=== PATIENT | female | born 1965 | race African-American/Black ===

== ENCOUNTER 2016-05-18 20:28 | Emergency (ER) | payer OTHER ==
[2016-05-18 20:40] VITALS: TEMP 98.6; BMI 34.9
[2016-05-18] MEDS ORDERED: ALBUTEROL SO4 2.5/IPRATROPIUM 0.5 INH SOL 3 ML VIAL.NEB. NEB ONE ×2 (20:42→22:18)
[2016-05-18] MEDS ORDERED: methylPREDNISolone NA SUCC 125 MG/2 ML VIAL ONE (20:48)
[2016-05-18] MEDS ORDERED: ACETAMINOPHEN 325 MG TABLET (FP) PO ONE (23:09)
--- NOTE | 2016-05-18 23:09 | PDOC ---
History of Present Illness - History of Present Illness Initial Comments: 05/18/16 23:12 Patient is a 50 year old female with significant medical hx of asthma who is presenting to the ED with URI symptoms for three days. Patient complains of nasal congestion, rhinorrhea, cough, fever and chills. Today the patient was out and she began coughing and having shortness of breath. She used her inhaler without having any relief and began feeling anxious. The patient began hyperventilating, with tingling in her hands, and she came to the ED. <Amaris Landis - Last Filed: 05/18/16 23:17> <Alondra Noble - Last Filed: 05/19/16 02:46> - General Chief Complaint: Asthma Stated Complaint: ASTHMA,DIFF BREATHING Time Seen by Provider: 05/18/16 20:41 Past History <Amaris Landis - Last Filed: 05/18/16 23:17> - Past Medical History Asthma: Yes - Surgical History Cholecystectomy: Yes - Immunization History Immunization Up to Date: Yes - Psycho/Social/Smoking Cessation Hx Anxiety: No Suicidal Ideation: No Smoking Status: No Smoking History: Never smoked Number of Cigarettes Smoked Daily: 0 Information on smoking cessation initiated: No Hx Alcohol Use: No Drug/Substance Use Hx: No <Alondra Noble - Last Filed: 05/19/16 02:46> - Past Medical History Allergies/Adverse Reactions: Allergies Allergy/AdvReac Type Severity Reaction Status Date / Time No Known Allergies Allergy Verified 05/18/16 20:37 Home Medications: Ambulatory Orders Albuterol Sulfate Inhaler - [Ventolin HFA Inhaler -] 1 - 2 inh IH QID PRN #0 inh 10/25/11 Cetirizine HCl [Zyrtec] 10 mg PO DAILY #0 tab.rapdis 10/25/11 Review of Systems - Review of Systems Comments:: 05/18/16 23:17 CONSTITUTIONAL: Present: fever, chills, hyperventilating Absent: diaphoresis, generalized weakness, malaise, loss of appetite HEENT: Present: rhinorrhea, nasal congestion Absent: throat pain, throat swelling, difficulty swallowing, mouth swelling, ear pain, eye pain, visual changes CARDIOVASCULAR: Absent: chest pain, syncope, palpitations, irregular heart rate, lightheadedness , peripheral edema RESPIRATORY: Present: cough, shortness of breath Absent: dyspnea with exertion, orthopnea, wheezing, stridor, hemoptysis GASTROINTESTINAL: Absent: abdominal pain, abdominal distension, nausea, vomiting, diarrhea, constipation, melena, hematochezia GENITOURINARY: Absent: dysuria, frequency, urgency, hesitancy, hematuria, flank pain, genital pain MUSCULOSKELETAL: Absent: myalgia, arthralgia, joint swelling SKIN: Absent: rash, itching, pallor HEMATOLOGIC/IMMUNOLOGIC: Absent: easy bleeding, easy bruising, lymphadenopathy, frequent infections ENDOCRINE: Absent: unexplained weight gain, unexplained weight loss, heat intolerance, cold intolerance NEUROLOGIC: Present: tingling in hands Absent: headache, focal weakness, dizziness, unsteady gait, seizure, mental status changes, bladder or bowel incontinence. PSYCHIATRIC: Absent: anxiety, depression, suicidal or homicidal ideation, hallucinations <Amaris Landis - Last Filed: 05/18/16 23:17> *Physical Exam - Vital Signs Last Vital Signs Temp Pulse Resp BP Pulse Ox 98.6 F 121 H 16 130/81 94 L 05/18/16 20:37 05/18/16 20:37 05/18/16 20:37 05/18/16 20:37 05/18/16 20:37 - Physical Exam Comments: 05/18/16 23:18 GENERAL: Well developed, well nourished. Awake and alert. Hyperventilating. HEENT: Normocephalic, atraumatic. PERRLA, EOMI. No conjunctival pallor. Sclera are non- icteric. Moist mucous membranes. Oropharynx is clear. NECK: Supple. Full ROM. No JVD. Carotid pulses 2+ and symmetric, without bruits. No thyromegaly. No lymphadenopathy. CARDIOVASCULAR: Regular rate and rhythm. No murmurs, rubs, or gallops. Distal pulses are 2+ and symmetric. PULMONARY: No evidence of respiratory distress. Lungs clear to auscultation bilaterally. No wheezing, rales or rhonchi. ABDOMINAL: Soft. Non-tender. Non-distended. No rebound or guarding. No organomegaly. Normoactive bowel sounds. MUSCULOSKELETAL: Normal range of motion at all joints. No bony deformities or tenderness. No CVA tenderness. EXTREMITIES: No cyanosis. No clubbing. No edema. No calf tenderness. SKIN: Warm and dry. Normal capillary refill. No rashes. No jaundice. NEUROLOGICAL: Alert, awake, appropriate. Cranial nerves 2-12 intact. Normal speech. Gait is normal without ataxia. PSYCHIATRIC: Cooperative. Good eye contact. Appropriate mood and affect. <Amaris Landis - Last Filed: 05/18/16 23:17> - Vital Signs Last Vital Signs Temp Pulse Resp BP Pulse Ox 98.6 F 121 H 16 130/81 94 L 05/18/16 20:37 05/18/16 20:37 05/18/16 20:37 05/18/16 20:37 05/18/16 20:37 <Alondra Noble - Last Filed: 05/19/16 02:46> ED Treatment Course - Medications Given in the ED: ED Medications Discontinued Medications Generic Name Dose Route Start Last Admin Trade Name Freq PRN Reason Stop Dose Admin Albuterol/Ipratropium 1 amp 05/18/16 22:18 05/18/16 22:18 Duoneb - NEB 05/18/16 22:19 1 amp ONCE ONE Administration <Amaris Landis - Last Filed: 05/18/16 23:17> - LABORATORY CBC & Chemistry Diagram: 05/19/16 00:43 05/19/16 00:43 - Medications Given in the ED: ED Medications Discontinued Medications Generic Name Dose Route Start Last Admin Trade Name Freq PRN Reason Stop Dose Admin Albuterol/Ipratropium 1 amp 05/18/16 22:18 05/18/16 22:18 Duoneb - NEB 05/18/16 22:19 1 amp ONCE ONE Administration <Alondra Noble - Last Filed: 05/19/16 02:46> Medical Decision Making - Medical Decision Making 05/18/16 23:43 This 50-year-old female came in for anxiety, hyperventilation. She has a past medical history of asthma and had been having URI symptoms since the weekend. While she was shopping today she became short of breath but her inhalers did not help her. She came in hyperventilating with numbness around her lips and tingling in her fingertips. She has several breathing treatments, she had no wheezing and she was discharged. However Her vital signs were repeated and she was hypoxic with a very good waveform. Her pulse ox only got to 91%. 05/19/16 02:45 -Is very important to sit the patient up because that her pulse ox would reach 95%. I feel because she is overweight that her body habitus was responsible for the low oxygenation when she laid down supine. She said she normally always sleeps on pillows He did rule out a PE with a CT and review of the chest. There was no acute pathology. There is no evidence of large central embolism. There was no aortic dissection or aneurysm. The heart size is normal. No pleural effusions or pericardial effusions and the lungs were clear. Impression asthma <Alondra Noble - Last Filed: 05/19/16 02:46> *DC/Admit/Observation/Transfer - Attestations Scribe Attestion: 05/18/16 23:19 Documentation prepared by Amaris Landis, acting as medical assistant for Alondra Noble MD. <Amaris Landis - Last Filed: 05/18/16 23:17> <Alondra Noble - Last Filed: 05/19/16 02:46> Diagnosis at time of Disposition: Anxiety Asthma Qualifiers: Asthma severity: mild intermittent Asthma complication type: uncomplicated Qualified Code(s): J45.20 - Mild intermittent asthma, uncomplicated URI (upper respiratory infection) Qualifiers: URI type: unspecified viral URI Qualified Code(s): J06.9 - Acute upper respiratory infection, unspecified - Discharge Dispostion Disposition: HOME Condition at time of disposition: Stable - Referrals Referrals: Yadi Cerrato MD [Primary Care Provider] - - Patient Instructions Printed Discharge Instructions: DI for Asthma -- Adult Additional Instructions: please use your asthma medications as needed followup with your regular physician
[2016-05-18] MEDS ORDERED: predniSONE 20 MG TABLET (UD) PO ONE (23:19)
[2016-05-18] MEDS ORDERED: predniSONE 20 MG TABLET (UD) ONE (23:19)
[2016-05-18] MEDS ORDERED: ACETAMINOPHEN 325 MG TABLET (FP) ONE (23:19)
[2016-05-18 23:36] VITALS: BP 115/68; PULSE 84
[2016-05-19 00:59] LABS: MCH 30.2 pg (25.7-33.7); MCHC 33.3 g/dl (32.0-36.0); MEAN CELL VOLUME 90.7 fl (80-96); MEAN PLT VOLUME 9.6 fl (7.5-11.1); PLATELET COUNT 229 K/MM3 (134-434); RDW 13.5 % (11.6-15.6); WHITE BLOOD COUNT 10.4 K/mm3 (4.0-10.0)
[2016-05-19 01:20] LABS: ALBUMIN 3.9 g/dl (3.4-5.0); ALK PHOS 78 U/L (45-117); ANION GAP 13 (8-16); BILIRUBIN,TOTAL 0.4 mg/dL (0.2-1.0); CO2 22 mmol/L (21-32); CREATININE 0.8 mg/dL (0.55-1.02); GLUCOSE,RANDOM 158 mg/dL (74-106); SGOT/AST 13 U/L (15-37); SGPT/ALT 21 U/L (12-78); TOT PROT 7.6 g/dl (6.4-8.2)
== END 2016-05-19 03:05 | disposition home or self-care (01) ==
LOC: JER 20:28
PROC: 3E0F7GC Introduction of Other Therapeutic Substance into Respiratory Tract, Via Natural or Artificial Opening (ICD-10-PCS; principal; 2016-05-18)
DX: J45.20 Mild intermittent asthma, uncomplicated (principal); J06.9 Acute upper respiratory infection, unspecified; F41.9 Anxiety disorder, unspecified; R06.4 Hyperventilation
CPT/HCPCS: 36415; 71275-TC; 80053; 84703; 85027; 85730; 94640; 99283-25

== ENCOUNTER → 2016-09-15 | Day surgery (SDC) | payer OTHER ==
--- NOTE | 2016-09-16 13:53 | PATH ---
Cytology Non-Gynecological Report Patient Name: HERBERT SANCHEZ [facility]. Rec. #: [id number] /Age/Gender: 1965 (Age: 51) / F Account: [id number] Location: RADIOLOGY Taken: 09/15/2016 Received: 09/15/2016 Reported: 09/16/2016 Physicians: Smooth Sofia M.D. Specimen(s) Received RIGHT THYROID FNA Clinical History Right thyroid nodule, 2.2 x 1.8 x 1.5 cm Final Diagnosis THYROID GLAND, RIGHT LOBE, US GUIDED FINE NEEDLE ASPIRATION BIOPSY: SATISFACTORY FOR EVALUATION. NO MALIGNANT CELLS IDENTIFIED. CONSISTENT WITH NODULAR GOITER WITH CYSTIC CHANGE (BENIGN FOLLICULAR NODULE, BETHESDA CATEGORY II, BENIGN), SEE COMMENT. Comment: The smears show clusters of bland appearing follicular epithelial cells arranged in macro- and microfollicles and flat sheets. Some cells show Hurthle cell (oncocytic) change. Macrophages are present indicative of cystic change. Colloid is present. Electronically Signed London Zuluaga M.D. Gross Description Received are four air dried smears, four smears in 95% alcohol, and 20 cc of bloody fluid in formalin. Four diff-quik stained slides, four Pap stained slides and one cell block are made.
== END | disposition home or self-care (01) ==
LOC: JRADIR 10:32
PROVIDERS: ATTEND Internal Medicine Endocrinology, Diabetes & Metabolism
PROC: 0GBH3ZX Excision of Right Thyroid Gland Lobe, Percutaneous Approach, Diagnostic (ICD-10-PCS; principal; 2016-09-15)
PROC: BG44ZZZ Ultrasonography of Thyroid Gland (ICD-10-PCS; 2016-09-15)
DX: E04.1 Nontoxic single thyroid nodule (principal)
CPT/HCPCS: 10022; 76942; 88173; 88305-TC

== ENCOUNTER 2017-05-21 08:23 | Emergency (ER) | payer OTHER ==
[2017-05-21 08:44] VITALS: TEMP 98.2; BMI 34.9
[2017-05-21] MEDS ORDERED: ACETAMINOPHEN 1000 MG/100 ML VIAL (NON FORMULARY) IVPB ONE (09:40)
[2017-05-21] MEDS ORDERED: ACETAMINOPHEN INJECTION 100 ML IVPB ONE (10:01)
[2017-05-21 10:21] LABS: BASO % 0.7 % (0-2.0); EOS % 0.5 % (0-4.5); HEMOGLOBIN 11.9 GM/dL (10.7-15.3); LYMPH % 30.1 % (8-40); MCH 28.9 pg (25.7-33.7); MEAN CELL VOLUME 90.3 fl (80-96); MEAN PLT VOLUME 8.9 fl (7.5-11.1); MONO % 5.3 % (3.8-10.2); NEUT % 63.4 % (42.8-82.8); PLATELET COUNT 222 K/MM3 (134-434); RDW 13.7 % (11.6-15.6); WHITE BLOOD COUNT 7.9 K/mm3 (4.0-10.0)
[2017-05-21 10:48] LABS: INR 0.99 (0.82-1.09); PROTHROMBIN TIME (PATIENT) 11.2 SEC (9.98-11.88)
[2017-05-21 10:51] LABS: ACTIVATED PTT 31.1 SECONDS (26.9-34.4)
[2017-05-21] MEDS ORDERED: KETOROLAC TROMETHAMINE 15 MG/ML VIAL IVPUSH ONE (11:12)
[2017-05-21] MEDS ORDERED: KETOROLAC TROMETHAMINE 15 MG/ML VIAL ONE (11:19)
[2017-05-21 11:27] LABS: ALBUMIN 3.9 g/dl (3.4-5.0); ALK PHOS 111 U/L (45-117); ANION GAP 6 (8-16); BILIRUBIN,TOTAL 0.4 mg/dL (0.2-1.0); BLOOD UREA NITROGEN 15 mg/dL (7-18); CALCIUM 8.3 mg/dL (8.5-10.1); CHLORIDE 109 mmol/L (98-107); CO2 26 mmol/L (21-32); CREATININE 0.6 mg/dL (0.55-1.02); GLUCOSE,RANDOM 80 mg/dL (74-106); SGOT/AST 13 U/L (15-37); SGPT/ALT 26 U/L (12-78); SODIUM 141 mmol/L (136-145)
--- NOTE | 2017-05-21 12:01 | PDOC ---
History of Present Illness <Alan May - Last Filed: 05/21/17 13:09> <Sandip Pope - Last Filed: 05/22/17 18:55> - General Chief Complaint: Chest Pain Stated Complaint: CHEST PAIN Time Seen by Provider: 05/21/17 08:53 - History of Present Illness Initial Comments: 05/21/17 11:53 "The patient is a 50 year old female with a significant PMH of asthma and left bundle branch block who presents to the emergency department with left sided chest pain after twisting at work approximately 2 days ago. She describes her chest pain a pressure like sensation localized on the left side with no radiation, pleuritic in nature which is aggravated by movement, 8/10 in severity and with associated shortness of breath. The patient reports being at work on Wednesday and twisting her body, after which she experienced her chest pain and some muscle soreness. She reports her muscle soreness was somewhat relieved by heating pads but presents to the ED after her chest pain has not resolved. The patient denies any history of DVT/PE/immobilization/estrogen/ OCPs. Family history is pertinent for AR (brother at age 49). Of note, the patient was recently seen in the ED about 3 days ago for an upper respiratory infection with cough. She has since been prescribed an Albuterol nebulizer by her PCP. The patient denies headache and dizziness. Denies fever, chills, nausea, vomit, diarrhea and constipation. Denies dysuria, frequency, urgency and hematuria. Allergies: NKA Past surgical history: Cholecystectomy. Unspecified bladder and uterine surgeries. Social history: No reported cigarette, alcohol, or drug use PCP: Dr. Cerrato " (Sandip Pope) Past History <Alan May - Last Filed: 05/21/17 13:09> - Past Medical History Anemia: No Asthma: Yes Cancer: No Cardiac Disorders: No (lt bundle branch block) CVA: No COPD: No CHF: No Dementia: No Diabetes: No GI Disorders: No Disorders: Yes (PROLAPSED BLADDER) HTN: No Hypercholesterolemia: No Liver Disease: No Seizures: No Thyroid Disease: No - Surgical History Abdominal Surgery: No Appendectomy: No Cardiac Surgery: No Cholecystectomy: Yes Lung Surgery: No Neurologic Surgery: No Orthopedic Surgery: No - Immunization History Immunization Up to Date: Yes - Suicide/Smoking/Psychosocial Hx Smoking Status: No Smoking History: Never smoked Have you smoked in the past 12 months: No Number of Cigarettes Smoked Daily: 0 Information on smoking cessation initiated: No Hx Alcohol Use: No Drug/Substance Use Hx: No Substance Use Type: Alcohol <Sandip Pope - Last Filed: 05/22/17 18:55> - Past Medical History Allergies/Adverse Reactions: Allergies Allergy/AdvReac Type Severity Reaction Status Date / Time No Known Allergies Allergy Verified 05/21/17 08:40 Home Medications: Ambulatory Orders Cetirizine HCl [Zyrtec] 10 mg PO PRN PRN 03/25/17 Cholecalciferol (Vitamin D3) [Vitamin D3 -] 1,000 unit PO DAILY 03/26/17 Quinapril HCl [Accupril -] 10 mg PO DAILY 03/26/17 Naproxen 500 mg PO BID PRN #14 tablet 05/21/17 Cardiac Specific PMH - Complaint Specific PMHX Pacemaker: No <Sandip Pope - Last Filed: 05/22/17 18:55> Review of Systems <Alan May - Last Filed: 05/21/17 13:09> <Sandip Pope - Last Filed: 05/22/17 18:55> - Review of Systems Comments:: 05/21/17 11:55 "GENERAL/CONSTITUTIONAL: No fever or chills. No weakness. HEAD, EYES, EARS, NOSE AND THROAT: No change in vision. No ear pain or discharge. No sore throat. CARDIOVASCULAR: (+) Left sided chest pain. (+) Shortness of breath. .RESPIRATORY: No cough, wheezing, or hemoptysis. GASTROINTESTINAL: No nausea, vomiting, diarrhea or constipation. GENITOURINARY: No dysuria, frequency, or change in urination. MUSCULOSKELETAL: (+) Muscle soreness. No joint pain. SKIN: No rash NEUROLOGIC: No headache, vertigo, loss of consciousness, or change in strength/ sensation. ENDOCRINE: No increased thirst. No abnormal weight change. HEMATOLOGIC/LYMPHATIC: No anemia, easy bleeding, or history of blood clots. ALLERGIC/IMMUNOLOGIC: No hives or skin allergy. " (Sandip Pope) *Physical Exam <Alan May - Last Filed: 05/21/17 13:09> <Sandip Pope - Last Filed: 05/22/17 18:55> - Vital Signs Last Vital Signs Temp Pulse Resp BP Pulse Ox 98.2 F 78 20 131/70 94 L 05/21/17 08:40 05/21/17 12:51 05/21/17 08:40 05/21/17 12:51 05/21/17 08:40 - Physical Exam Comments: 05/21/17 11:55 "GENERAL: Awake, alert, and fully oriented, in no acute distress HEAD: No signs of trauma EYES: PERRLA, EOMI, sclera anicteric, conjunctiva clear ENT: Auricles normal inspection, hearing grossly normal, nares patent, oropharynx clear without exudates. Moist mucosa NECK: Nontender, no stepoffs, Normal ROM, supple, no lymphadenopathy, JVD, or masses LUNGS: Breath sounds equal, clear to auscultation bilaterally. No wheezes, and no crackles HEART: Regular rate and rhythm, normal S1 and S2, no murmurs, rubs or gallops ABDOMEN: Soft, nontender, normoactive bowel sounds. No guarding, no rebound. No masses EXTREMITIES: Normal range of motion, no edema. No clubbing or cyanosis. No cords, erythema, or tenderness NEUROLOGICAL: Cranial nerves II through XII intact. 5/5 strength and sensation in all extremities, Normal speech, normal gait SKIN: Warm, Dry, normal turgor, no rashes or lesions noted. " (Sandip Pope) Heart Score/ECG Review <Alan May - Last Filed: 05/21/17 13:09> - History History: Slightly suspicious - Electrocardiogram EKG: Non specific repolarization disturbance - Age Age: 45-65 - Risk Factors Risk Factors Heart Score: Yes Positive family hx of cardiac disease Based on the list above the patient has:: 1-2 risk factors - Troponin Troponin: </= normal limit - Score Heart Score - Total: 3 <Sandip Pope - Last Filed: 05/22/17 18:55> - ECG Impressions Comment:: 05/21/17 11:55 NSR, no JAMIL/STDs, LBBB (known), axis wnl, QTc 537 (Sandip Pope) ED Treatment Course - LABORATORY CBC & Chemistry Diagram: 05/21/17 09:42 05/21/17 09:42 <Alan May Last Filed: 05/21/17 13:09> - LABORATORY CBC & Chemistry Diagram: 05/21/17 09:42 05/21/17 09:42 <Sandip Pope - Last Filed: 05/22/17 18:55> - ADDITIONAL ORDERS Additional order review: 05/21/17 09:42 RBC 4.10 D MCV 90.3 MCHC 32.0 RDW 13.7 MPV 8.9 Neutrophils % 63.4 D Lymphocytes % 30.1 D Monocytes % 5.3 Eosinophils % 0.5 D Basophils % 0.7 D - RADIOLOGY Radiology Studies Ordered: Category Date Time Status CHEST PA & LAT [RAD] Stat Radiology 05/21/17 09:39 Completed - Medications Given in the ED: ED Medications Discontinued Medications Generic Name Dose Route Start Last Admin Trade Name Toma PRN Reason Stop Dose Admin Acetaminophen 1,000 mg 05/21/17 09:40 05/21/17 10:00 Ofirmev Injection - IVPB 05/21/17 09:41 1,000 mg ONCE ONE Administration Ketorolac Tromethamine 15 mg 05/21/17 11:12 05/21/17 11:19 Toradol Injection - IVPUSH 05/21/17 11:13 15 mg ONCE ONE Administration Oxycodone/Acetaminophen 1 combo 05/21/17 11:54 05/21/17 12:14 Percocet 5/325 - PO 05/21/17 11:55 1 combo ONCE ONE Administration Medical Decision Making <Alan May - Last Filed: 05/21/17 13:09> <Sandip Pope - Last Filed: 05/22/17 18:55> - Medical Decision Making 05/21/17 11:57 51 F with chest pain x 3 days. Likely msk as pain was triggered by twisting of body. ACS unlikely given no ischemic changes on EKG. Pt slightly hypoxic in ER to 94, likely 2/2 asthma. No PE risk factors. However, she does not PERC out due to O2 sat, so will send dimer. - Labs, trop, Ddimer - CXR - Pain control 05/21/17 12:13 Labs wnl, trop and dimer negative. CXR clear. Pt reassessed - reports significant improvement in pain. Lung exam continues to be clear. O2 sat rechecked, now 100% on RA without intervention. Vitals normal Pt well appearing, clinically stable for DC. I discussed the physical exam findings, ancillary test results and final diagnoses with the patient. I answered all of the patient's questions. The patient was satisfied with the care received and felt comfortable with the discharge plan and treatment plan. The patient agrees to follow up with the primary care physician within 24-72 hours. (Sandip Pope) *DC/Admit/Observation/Transfer <Alan May - Last Filed: 05/21/17 13:09> <Sandip Pope - Last Filed: 05/22/17 18:55> Diagnosis at time of Disposition: Chest pain - Discharge Dispostion Disposition: HOME Condition at time of disposition: Stable - Prescriptions Prescriptions: Naproxen 500 mg PO BID PRN #14 tablet PRN Reason: Pain - Referrals Referrals: Yadi Cerrato MD [Primary Care Provider] - Wisam Gilmore MD [Staff Physician] - - Patient Instructions Printed Discharge Instructions: DI for Atypical Chest Pain Additional Instructions: Follow up with your primary doctor within 1 week for further evaluation of your chest pain. Even though your labwork was normal today, you should still see a automotive technician instructor for a full work up of your heart, especially given your family history of heart disease. You can call the number provided to make an appointment with our automotive technician instructor. If you experience worsening chest pain, shortness of breath, or any other concerning symptoms, return to the ER immediately. - Post Discharge Activity - Attestations Scribe Attestion: 05/21/17 13:09 Documentation prepared by Alan May, acting as program medical director for Sandip Pope MD. (Alan May) Physician Attestion: 05/21/17 12:21 I, Dr. Sandip Pope MD, attest that this document has been prepared under my direction and personally reviewed by me in its entirety. I further attest, that it accurately reflects all work, treatment, procedures and medical decision -making performed by me. (Sandip Pope)
[2017-05-21] MEDS ORDERED: HEMOQUE TEST 1 EACH EACH ONE (12:11)
[2017-05-21 12:53] VITALS: BP 131/70; PULSE 78
--- NOTE | 2017-05-22 13:35 | EKG ---
Test Reason : Blood Pressure : / mmHG Vent. Rate : 094 BPM Atrial Rate : 094 BPM P-R Int : 166 ms QRS Dur : 152 ms QT Int : 430 ms P-R-T Axes : 043 015 063 degrees QTc Int : 537 ms NORMAL SINUS RHYTHM LEFT BUNDLE BRANCH BLOCK ABNORMAL ECG WHEN COMPARED WITH ECG OF 23-FEB-2017 14:06, NO SIGNIFICANT CHANGE WAS FOUND Confirmed by FACUNDO MARIE MD ([id number]) on 05/22/2017 1:35:19 PM Referred By: Confirmed By:FACUNDO MARIE MD
== END 2017-05-21 12:53 | disposition home or self-care (01) ==
LOC: JER 08:23
PROC: 3E033NZ Introduction of Analgesics, Hypnotics, Sedatives into Peripheral Vein, Percutaneous Approach (ICD-10-PCS; principal; 2017-05-21)
PROC: 3E0333Z Introduction of Anti-inflammatory into Peripheral Vein, Percutaneous Approach (ICD-10-PCS; 2017-05-21)
DX: R07.89 Other chest pain (principal)
CPT/HCPCS: 36415; 71046-TC-FY; 80053; 82550; 84484; 85025; 85379; 85610; 85730; 93005; 93010; 99284-25

== ENCOUNTER 2018-11-13 15:36 | Emergency (ER) | payer OTHER ==
[2018-11-13 15:44] VITALS: BMI 35.6
[2018-11-13] MEDS ORDERED: ALBUTEROL SO4 2.5/IPRATROPIUM 0.5 INH SOL 3 ML VIAL.NEB. NEB ONE (16:35)
[2018-11-13 17:02] LABS: BASO % 0.4 % (0-2.0); EOS % 0.7 % (0-4.5); HEMATOCRIT 35.5 % (32.4-45.2); HEMOGLOBIN 11.8 GM/dL (10.7-15.3); LYMPH % 17.9 % (8-40); MCH 31.4 pg (25.7-33.7); MCHC 33.1 g/dl (32.0-36.0); MEAN CELL VOLUME 94.7 fl (80-96); MEAN PLT VOLUME 9.9 fl (7.5-11.1); MONO % 10.5 % (3.8-10.2); NEUT % 70.5 % (42.8-82.8); PLATELET COUNT 177 K/MM3 (134-434); RBC 3.75 M/mm3 (3.60-5.2); RDW 14.3 % (11.6-15.6); WHITE BLOOD COUNT 6.4 K/mm3 (4.0-10.0)
[2018-11-13 17:15] LABS: INR 1.18 (0.83-1.09)
--- NOTE | 2018-11-13 17:31 | PDOC ---
History of Present Illness - General Chief Complaint: Respiratory Stated Complaint: SICK Time Seen by Provider: 11/13/18 15:50 History Source: Patient Exam Limitations: No Limitations Past History - Travel Traveled outside of the country in the last 30 days: Yes If so, where?: [place] Close contact w/someone who was outside of country & ill: No - Past Medical History Allergies/Adverse Reactions: Allergies Allergy/AdvReac Type Severity Reaction Status Date / Time No Known Allergies Allergy Verified 11/13/18 15:44 Home Medications: Ambulatory Orders Cetirizine HCl [Zyrtec] 10 mg PO PRN PRN 03/25/17 Cholecalciferol (Vitamin D3) [Vitamin D3 -] 1,000 unit PO DAILY 03/26/17 Quinapril HCl [Accupril -] 10 mg PO DAILY 03/26/17 Naproxen 500 mg PO BID PRN #14 tablet 05/21/17 Anemia: No Asthma: Yes Cancer: No Cardiac Disorders: No (lt bundle branch block) CVA: No COPD: No CHF: No Dementia: No Diabetes: No GI Disorders: No Disorders: Yes (PROLAPSED BLADDER) HTN: No Hypercholesterolemia: No Liver Disease: No Seizures: No Thyroid Disease: No - Surgical History Abdominal Surgery: No Appendectomy: No Cardiac Surgery: No Cholecystectomy: Yes Lung Surgery: No Neurologic Surgery: No Orthopedic Surgery: No - Immunization History Immunization Up to Date: Yes - Suicide/Smoking/Psychosocial Hx Smoking Status: No Smoking History: Never smoked Have you smoked in the past 12 months: No Number of Cigarettes Smoked Daily: 0 Hx Alcohol Use: No Drug/Substance Use Hx: No Substance Use Type: Alcohol Review of Systems - Review of Systems Comments:: 11/13/18 17:30 CONSTITUTIONAL: Absent: fever, chills, diaphoresis, generalized weakness, malaise, loss of appetite HEENT: Absent: rhinorrhea, nasal congestion, throat pain, throat swelling, difficulty swallowing, mouth swelling, ear pain, eye pain, visual Changes CARDIOVASCULAR: Absent: chest pain, loss of consciousness, palpitations, irregular heart rate, peripheral edema RESPIRATORY: Present: cough, shortness of breath, dsypnea with exertion, orthopnea Absent: wheezing, stridor, hemoptysis GASTROINTESTINAL: Absent: abdominal pain, abdominal distension, nausea, vomiting, diarrhea, constipation, melena, hematochezia GENITOURINARY: Absent: dysuria, frequency, urgency, hesitancy, hematuria, flank pain, genital pain MUSCULOSKELETAL: Absent: myalgia, arthralgia, joint swelling SKIN: Absent: rash, itching, pallor HEMATOLOGIC/IMMUNOLOGIC: Absent: easy bleeding, easy bruising, lymphadenopathy, frequent infections ENDOCRINE: Absent: unexplained weight gain, unexplained weight loss, heat intolerance, cold intolerance NEUROLOGIC: Absent: headache, focal weakness or paresthesias, dizziness, unsteady gait, seizure, mental status changes, bladder or bowel incontinence PSYCHIATRIC: Absent: anxiety, depression, suicidal or homicidal ideation, hallucinations. *Physical Exam - Vital Signs Last Vital Signs Temp Pulse Resp BP Pulse Ox 99.6 F 45 L 18 107/52 L 97 11/13/18 15:40 11/13/18 15:40 11/13/18 15:40 11/13/18 15:40 11/13/18 15:40 - Physical Exam Comments: 11/13/18 17:31 GENERAL: Well developed, well nourished. Awake and alert. Appears weak. No acute distress HEENT: Normocephalic, atraumatic. PERRLA, EOMI. No conjunctival pallor. Sclera are non- icteric. Moist mucous membranes. Oropharynx is clear. NECK: Supple. Full ROM. No JVD. Carotid pulses 2+ and symmetric, without bruits. No thyromegaly. No lymphadenopathy. CARDIOVASCULAR: Regular rate and rhythm. No murmurs, rubs, or gallops. Distal pulses are 2+ and symmetric. PULMONARY: No evidence of respiratory distress. Lungs with diminished sounds to the bases. Scattered RUL wheezing No rales or rhonchi. ABDOMINAL: Soft. Non-tender. Non-distended. No rebound or guarding. No organomegaly. Normoactive bowel sounds. MUSCULOSKELETAL Normal range of motion at all joints. No bony deformities or tenderness. No CVA tenderness. EXTREMITIES: No cyanosis. No clubbing. No edema. No calf tenderness. SKIN: Warm and dry. Normal capillary refill. No rashes. No jaundice. NEUROLOGICAL: Alert, awake, appropriate. Cranial nerves 2-12 intact. No deficits to light touch and temperature in face, upper extremities and lower extremities. No motor deficits in the in face, upper extremities and lower extremities. Normoreflexic in the upper and lower extremities. Normal speech. Toes are down- going bilaterally. Gait is normal without ataxia. PSYCHIATRIC: Cooperative. Good eye contact. Appropriate mood and affect. ED Treatment Course - LABORATORY CBC & Chemistry Diagram: 11/13/18 16:55 11/13/18 16:55 - ADDITIONAL ORDERS Additional order review: Laboratory Results 11/13/18 16:55 PT with INR 14.00 H INR 1.18 H 11/13/18 16:55 RBC 3.75 MCV 94.7 MCHC 33.1 RDW 14.3 MPV 9.9 D Neutrophils % 70.5 Lymphocytes % 17.9 D Monocytes % 10.5 H D Eosinophils % 0.7 Basophils % 0.4 - RADIOLOGY Radiology Studies Ordered: Category Date Time Status CHEST PA & LAT [RAD] Stat Radiology 11/13/18 16:35 Ordered - Medications Given in the ED: ED Medications Discontinued Medications Generic Name Dose Route Start Last Admin Trade Name Freq PRN Reason Stop Dose Admin Albuterol/Ipratropium 1 amp 11/13/18 16:35 11/13/18 16:58 Duoneb - NEB 11/13/18 16:36 1 amp ONCE ONE Administration Medical Decision Making - Medical Decision Making 11/13/18 17:32 the patient is a 53-year-old female with past medical history of hypertension, heart failure, left bundle branch block, asthma, presents to the ER with worsening shortness of breath over the past 3 days. The patient states that her symptoms initially began prior to her trip to [place] around November 02. She states that she had a cough and felt her breathing was tight so her primary care doctor prescribed her Z-Leopoldo. She states she initially felt better after the Z-Leopoldo however when she returned from [place] approximately 5 days ago her symptoms started again. She was placed on Levaquin 3 days ago however she states it has not helped her symptoms. She states that she has decreased exercise tolerance and gets short of breath walking from her bedroom to her bathroom. She also notes that she is sleeping on 3 pillows a night. Admits to wheezing generalized weakness. Denies fevers, chills, sore throat, chest pain, palpitations, edema, nausea vomiting diarrhea. A/P: Dyspnea on exertion Differential diagnosis includes but is not limited to asthma exacerbation, acute on chronic heart failure, pleural effusion, pneumonia, arrhythmia. Less likely viral illness On exam lung sounds are diminished at the bases, possible scattered wheezing heard at the RUL. Heart sounds are regular, S1-S2 present, no murmurs rubs or gallops noted. No peripheral edema noted Basic labs, troponin, BNP, EKG and chest x-ray ordered EKG shows a rate of 77 bpm QTc 454. Right axis deviation noted. No acute ST-T wave changes, however the patient is currently in bigeminy. Patient upgraded from fast track to the main ER given decreased exercise tolerance with EKG changes. Charge nurse Radha made aware. Signout given to Dr. Noble. Patient stable for transfer to room 4 for telemetry *DC/Admit/Observation/Transfer Diagnosis at time of Disposition: Bigeminal rhythm, Dyspnea on exertion - Referrals Referrals: Yadi Cerrato MD [Primary Care Provider] - - Patient Instructions - Post Discharge Activity
[2018-11-13 17:46] LABS: ALBUMIN 3.8 g/dl (3.4-5.0); ALK PHOS 100 U/L (45-117); ANION GAP 6 MMOL/L (8-16); BILIRUBIN,TOTAL 0.4 mg/dL (0.2-1); BLOOD UREA NITROGEN 14.5 mg/dL (7-18); CALCIUM 8.6 mg/dL (8.5-10.1); CHLORIDE 107 mmol/L (98-107); CO2 27 mmol/L (21-32); CREATININE 0.8 mg/dL (0.55-1.3); GLUCOSE,RANDOM 98 mg/dL (74-106); N-TERMINAL BNP 656.6 pg/ml (5-125); POTASSIUM 4.4 mmol/L (3.5-5.1); SGOT/AST 14 U/L (15-37); SGPT/ALT 22 U/L (13-61); SODIUM 140 mmol/L (136-145); TOT PROT 6.9 g/dl (6.4-8.2)
--- NOTE | 2018-11-13 18:24 | PDOC ---
History of Present Illness - General Chief Complaint: Respiratory Stated Complaint: SICK Time Seen by Provider: 11/13/18 15:50 History Source: Patient - History of Present Illness Initial Comments: 11/13/18 18:20 Pura Cisneros is a 53F with PMH asthma, HF, LBBB, and HTN presenting with weakness and SOB. A week and a half ago patient was feeling cold-like sx, got a Z-pac and felt better. Went to [place] last week, had a roommate who was sick, returned 5 days ago. Now has persistent productive cough of yellow sputum with dyspnea. Has long hx asthma, on albuterol and singulair, increased daily usage. Saw her PCP again, was given 7 day course of 500mg Levaquin, has taken 5 days worth. Reports weakness and difficulty standing in the shower. Denies fevers, palpitations or chest pain, headache, syncope. Denies abd pain, urinary sx, constipation, diarrhea. Scheduled for hysterectomy in November for post-op uterine/bladder complication, denies vaginal bleeding. Hx LBBB, sees breakfast host Alfredo Gandara ([phone]) for HF, on Entresto and Metop. Past History - Past Medical History Allergies/Adverse Reactions: Allergies Allergy/AdvReac Type Severity Reaction Status Date / Time No Known Allergies Allergy Verified 11/13/18 15:44 Home Medications: Ambulatory Orders Cholecalciferol (Vitamin D3) [Vitamin D3 -] 1,000 unit PO DAILY 03/26/17 Aspirin 81 mg PO DAILY 11/13/18 Cetirizine HCl [Zyrtec -] 10 mg PO DAILY 11/13/18 Metoprolol Succinate 50 mg PO DAILY 11/13/18 Pentosan Polysulfate Sodium [Elmiron] 100 mg PO DAILY 11/13/18 Prednisone [Deltasone] 20 mg PO TID 4 Days #12 tablet 11/13/18 Rosuvastatin Calcium [Crestor] 10 mg PO DAILY 11/13/18 Sacubitril/Valsartan [Entresto 97 mg-103 mg Tablet] 1 each PO DAILY 11/13/18 Anemia: No Asthma: Yes Cancer: No Cardiac Disorders: No (lt bundle branch block) CVA: No COPD: No CHF: No Dementia: No Diabetes: No GI Disorders: No Disorders: Yes (PROLAPSED BLADDER) HTN: No Hypercholesterolemia: No Liver Disease: No Seizures: No Thyroid Disease: No - Surgical History Abdominal Surgery: No Appendectomy: No Cardiac Surgery: No Cholecystectomy: Yes Lung Surgery: No Neurologic Surgery: No Orthopedic Surgery: No - Immunization History Immunization Up to Date: Yes - Suicide/Smoking/Psychosocial Hx Smoking Status: No Smoking History: Never smoked Have you smoked in the past 12 months: No Number of Cigarettes Smoked Daily: 0 Hx Alcohol Use: No Drug/Substance Use Hx: No Substance Use Type: Alcohol Review of Systems - Review of Systems Able to Perform ROS?: Yes Is the patient limited Indian proficient: No Constitutional: No: Chills, Fever, Night Sweats HEENTM: No: Blurred Vision, Hearing Loss, Throat Swelling, Dental Problems Respiratory: Yes: Cough (persistent, all day), Shortness of Breath, Wheezing Cardiac (ROS): Yes: Lightheadedness. No: Chest Pain, Edema, Chest Tightness ABD/GI: No: Blood Streaked Bowels, Constipated, Diarrhea, Nausea, Vomiting : No: Burning, Dysuria, Discharge Musculoskeletal: No: Back Pain Integumentary: No: Symptoms Reported Neurological: No: Symptoms reported All Other Systems: Reviewed and Negative *Physical Exam - Vital Signs Last Vital Signs Temp Pulse Resp BP Pulse Ox 99.6 F 45 L 18 107/52 L 97 11/13/18 15:40 11/13/18 15:40 11/13/18 15:40 11/13/18 15:40 11/13/18 15:40 - Physical Exam General Appearance: Yes: Nourished, Appropriately Dressed, Obese. No: Apparent Distress HEENT: positive: EOMI, Normal Voice, Symmetrical. negative: Scleral Icterus (R) , Scleral Icterus (L), Muffled/Hoarse voice, Pharyngeal Erythema Neck: positive: Trachea midline, Supple. negative: Tender, Decreased range of motion, Lymphadenopathy (R), Lymphadenopathy (L) Respiratory/Chest: positive: Normal Breath Sounds, Other (some decreased breath sounds in bases, no wheezing s/p nebs). negative: Chest Tender, Respiratory Distress, Accessory Muscle Use Cardiovascular: positive: Regular Rhythm, Regular Rate. negative: Murmur Gastrointestinal/Abdominal: positive: Normal Bowel Sounds, Soft. negative: Tender, Organomegaly Musculoskeletal: positive: Normal Inspection Extremity: positive: Normal Capillary Refill, Normal Inspection, Normal Range of Motion. negative: Tender, Pedal Edema, Swelling Integumentary: positive: Normal Color, Dry, Warm, Other (sunburn/peeling to chest and back) Neurologic: positive: Fully Oriented, Alert, Normal Mood/Affect, Normal Response ED Treatment Course - LABORATORY CBC & Chemistry Diagram: 11/13/18 16:55 11/13/18 16:55 - ADDITIONAL ORDERS Additional order review: Laboratory Results 11/13/18 11/13/18 16:55 16:55 PT with INR 14.00 H INR 1.18 H Sodium 140 Potassium 4.4 Chloride 107 Carbon Dioxide 27 Anion Gap 6 L BUN 14.5 Creatinine 0.8 Est GFR (CKD-EPI)AfAm 98.93 Est GFR (CKD-EPI)NonAf 85.36 Random Glucose 98 Calcium 8.6 Total Bilirubin 0.4 AST 14 L ALT 22 Alkaline Phosphatase 100 B-Natriuretic Peptide 656.6 H Total Protein 6.9 Albumin 3.8 11/13/18 16:55 RBC 3.75 MCV 94.7 MCHC 33.1 RDW 14.3 MPV 9.9 D Neutrophils % 70.5 Lymphocytes % 17.9 D Monocytes % 10.5 H D Eosinophils % 0.7 Basophils % 0.4 - Medications Given in the ED: ED Medications Discontinued Medications Generic Name Dose Route Start Last Admin Trade Name Freq PRN Reason Stop Dose Admin Albuterol/Ipratropium 1 amp 11/13/18 16:35 11/13/18 16:58 Duoneb - NEB 11/13/18 16:36 1 amp ONCE ONE Administration Medical Decision Making - Medical Decision Making 11/13/18 19:19 Pura Cisneros is a 53F with PMH asthma, HF, LBBB, and HTN presenting with weakness and SOB. Patient evaluated in Fast Track, got CMP, CBC, ECG, BNP, CXR, PT/INR/PTT, cardiac profile. Some wheezing on exam, given 1amp albuterol nebs with some improvement of wheezing but not cough. 11/13/18 19:39 CMP, CBC, WNL. BNP ~600. CXR on preliminary read remarkable for cardiomegaly, no signs of pleural effusion or consolidations. Given hx CHF, recent travel, recent URI, and asthma hx, concerned initially for CHF exacerbation vs. PE vs. asthma exacerbation vs. failure of outpatient tx PNA. No LE swelling and constant productive cough makes PE less likely. BNP 600 and no physical exam findings of fluid overload concerning for CHF. Likely asthma exacerbation, giving Solu-Medrol with prednisone taper for discharge. 11/13/18 19:40 ECG in bigeminy, previous ECG shows LBBB. Repeat ECG still bigeminy, will call home breakfast host for consult. 11/13/18 21:[address] Gandara, patient's hx maurice is known and unconcerning, instructions to f/u with him in the next month. Good to d/c home. *DC/Admit/Observation/Transfer Diagnosis at time of Disposition: Bigeminal rhythm, Dyspnea on exertion Asthma Qualifiers: Asthma severity: mild Asthma complication type: with acute exacerbation - Discharge Dispostion Disposition: HOME Condition at time of disposition: Improved Decision to Admit order: No - Prescriptions Prescriptions: Prednisone [Deltasone] 20 mg PO TID 4 Days #12 tablet - Referrals Referrals: Yadi Cerrato MD [Primary Care Provider] - - Patient Instructions Printed Discharge Instructions: DI for Asthma -- Adult Additional Instructions: Today you were evaluated for shortness of breath. Examination of your blood does not show any signs of infection or anemia, and you did not show any signs of worsening heart failure or pulmonary embolism after your recent travel. Your chest x-ray does not show any signs of fluid in your lungs or pneumonia. Thus, your shortness of breath is likely due to your asthma. We gave you a steroid called SoluMedrol today, and are sending you home with prednisone to keep your asthma at bay. We also noticed that your EKG shows an unusual rhythm called angelaeminy. After calling Dr. Alfredo Gandara, he confirmed that this was normal for you, and that you should see him in the next month. If you experience worsening shortness of breath, fever, cough blood, chest pain , palpitations, or any new or concerning symptoms, please return to the emergency room immediately. See your primary doctor in the next 72 hours, and follow-up with Dr. Gandara in the next month. - Post Discharge Activity
[2018-11-13] MEDS ORDERED: predniSONE 20 MG TABLET (UD) PO ONE (18:44)
[2018-11-13] MEDS ORDERED: predniSONE 20 MG TABLET (UD) ONE (18:50)
[2018-11-13] MEDS ORDERED: methylPREDNISolone NA SUCC 125 MG/2 ML VIAL IVPB ONE (18:54)
--- NOTE | 2018-11-13 18:58 | PDOC ---
*Physical Exam - Vital Signs Last Vital Signs Temp Pulse Resp BP Pulse Ox 99.6 F 45 L 18 107/52 L 97 11/13/18 15:40 11/13/18 15:40 11/13/18 15:40 11/13/18 15:40 11/13/18 15:40 ED Treatment Course - LABORATORY CBC & Chemistry Diagram: 11/13/18 16:55 11/13/18 16:55 - ADDITIONAL ORDERS Additional order review: Laboratory Results 11/13/18 11/13/18 16:55 16:55 PT with INR 14.00 H INR 1.18 H Sodium 140 Potassium 4.4 Chloride 107 Carbon Dioxide 27 Anion Gap 6 L BUN 14.5 Creatinine 0.8 Est GFR (CKD-EPI)AfAm 98.93 Est GFR (CKD-EPI)NonAf 85.36 Random Glucose 98 Calcium 8.6 Total Bilirubin 0.4 AST 14 L ALT 22 Alkaline Phosphatase 100 Creatine Kinase 151 Troponin I < 0.02 B-Natriuretic Peptide 656.6 H Total Protein 6.9 Albumin 3.8 11/13/18 16:55 RBC 3.75 MCV 94.7 MCHC 33.1 RDW 14.3 MPV 9.9 D Neutrophils % 70.5 Lymphocytes % 17.9 D Monocytes % 10.5 H D Eosinophils % 0.7 Basophils % 0.4 - Medications Given in the ED: ED Medications Discontinued Medications Generic Name Dose Route Start Last Admin Trade Name Raviq PRN Reason Stop Dose Admin Albuterol/Ipratropium 1 amp 11/13/18 16:35 11/13/18 16:58 Duoneb - NEB 11/13/18 16:36 1 amp ONCE ONE Administration Medical Decision Making - Medical Decision Making 11/13/18 18:55 I manually irrigated the vega but did not retrieve many clots. Pt is able to urinate and I spoke with Dr Fraga and he said to d/c the cbi and send the pt home.The pt can follow up in the office *DC/Admit/Observation/Transfer Diagnosis at time of Disposition: Bigeminal rhythm, Dyspnea on exertion - Prescriptions Prescriptions: Prednisone [Deltasone] 20 mg PO TID 4 Days #12 tablet - Referrals Referrals: Yadi Cerrato MD [Primary Care Provider] - - Patient Instructions - Post Discharge Activity
[2018-11-13] MEDS ORDERED: methylPREDNISolone NA SUCC 125 MG/2 ML VIAL ONE (19:13)
[2018-11-13 19:42] VITALS: BP 117/55; PULSE 73; TEMP 98.3
--- NOTE | 2018-11-13 21:09 | PDOC ---
Documentation entered by Albaro Sam SCRIBE, acting as scribe for Alondra Noble MD. Alondra Noble MD: This documentation has been prepared by the Flaco encinas Daniel, SCRIBE, under my direction and personally reviewed by me in its entirety. I confirm that the documentation accurately reflects all work, treatment, procedures, and medical decision making performed by me. Attending Attestation - Resident Resident Name: Mane Linton - ED Attending Attestation I have performed the following: I have examined & evaluated the patient, The case was reviewed & discussed with the resident, I agree w/resident's findings & plan, Exceptions are as noted - HPI HPI: 11/13/18 18:32 The patient is a 53 year old female with a past medical history of HTN, CHF, left bundle branch block, and asthma here today for evaluation of shortness of breath. The patient reports that she has been having one week of shortness of breath that has been making it hard for her to perform her daily activities and notes an associated cough. Patient reports that she traveled to [place] in the past week. She also notes that she has been using her inhaler more recently. Patient denies headache, lightheadedness. Denies chills. Denies chest pain. Denies nausea, vomiting, diarrhea, abdominal pain. Allergies: NKA PCP: Yadi Cerrato - Physicial Exam PE: 11/13/18 19:18 GENERAL: Well-appearing, well-nourished. No apparent distress. HEENT: Normocephalic, atraumatic. PERRL, EOM intact. CARDIOVASCULAR: Normal S1, S2. Regular rate and rhythm. PULMONARY: Clear to auscultation bilaterally after albuterol treatments. ABDOMEN: Soft, non-distended, non-tender. EXTREMITIES: Normal ROM in all four extremities. No gross deformities. SKIN: Warm, dry. No rash NEUROLOGICAL: No focal neurological deficits. - Medical Decision Making 11/13/18 21:06 We spoke with her furnace mechanic and she does have a history of bigeminy. He recommended she see him within the next 4 weeks -cxr napd,CM neg troponin pt will finish her antibiotics and follow up with her physicians imp cough > 3 weeks, asthma exacerbation pt's symptoms improved with resp tx and steroids RX for steroids
--- NOTE | 2018-11-14 10:09 | EKG ---
Test Reason : Blood Pressure : / mmHG Vent. Rate : 071 BPM Atrial Rate : 071 BPM P-R Int : 168 ms QRS Dur : 088 ms QT Int : 420 ms P-R-T Axes : 035 015 037 degrees QTc Int : 456 ms SINUS RHYTHM WITH FREQUENT PREMATURE VENTRICULAR COMPLEXES IN A PATTERN OF BIGEMINY OTHERWISE NORMAL ECG WHEN COMPARED WITH ECG OF 21-MAY-2017 08:32, NO SIGNIFICANT CHANGE WAS FOUND Confirmed by BRITTANY VALADEZ, TIFFANY ([id number]) on 11/14/2018 10:09:05 AM Referred By: Confirmed By:TIFFANY SOTO MD
--- NOTE | 2018-11-16 14:07 | EKG ---
Test Reason : Blood Pressure : / mmHG Vent. Rate : 077 BPM Atrial Rate : 077 BPM P-R Int : 164 ms QRS Dur : 096 ms QT Int : 402 ms P-R-T Axes : 023 013 057 degrees QTc Int : 454 ms SINUS RHYTHM WITH FREQUENT PREMATURE VENTRICULAR COMPLEXES IN A PATTERN OF BIGEMINY OTHERWISE NORMAL ECG WHEN COMPARED WITH ECG OF 21-MAY-2017 08:32, PREMATURE VENTRICULAR COMPLEXES ARE NOW PRESENT LEFT BUNDLE BRANCH BLOCK IS NO LONGER PRESENT Confirmed by ANIBAL VALADEZ, RIC ([id number]) on 11/16/2018 2:06:45 PM Referred By: Confirmed By:RIC BARNETT MD
== END 2018-11-13 21:54 | disposition home or self-care (01) ==
LOC: JER 15:36 → JERFT 15:36 → JER 21:54
PROC: 3E0F7GC Introduction of Other Therapeutic Substance into Respiratory Tract, Via Natural or Artificial Opening (ICD-10-PCS; principal; 2018-11-13)
PROC: 3E0333Z Introduction of Anti-inflammatory into Peripheral Vein, Percutaneous Approach (ICD-10-PCS; 2018-11-13)
DX: J45.21 Mild intermittent asthma with (acute) exacerbation (principal); I49.8 Other specified cardiac arrhythmias; R06.09 Other forms of dyspnea; I11.0 Hypertensive heart disease with heart failure; I50.9 Heart failure, unspecified
CPT/HCPCS: 36415; 71046-TC-FY; 80053; 82550; 82553; 83880; 84484; 85025; 85610; 93005; 93010; 94640; 96374; 99283-25

== ENCOUNTER 2020-05-17 04:15 | Day surgery (SDC) | payer OTHER ==
[2020-05-15 13:54] VITALS: BMI 36.2
[2020-05-17] MEDS ORDERED: LIDOCAINE HCL/PF 1% SDV 5ML VIAL ONE (07:16)
[2020-05-17] MEDS ORDERED: BUPIVACAINE HCL 50 ML ONE (07:16)
[2020-05-17] MEDS ORDERED: BUPIVACAINE HCL/PF 0.25% (2.5MG/ML) 10 ML VIAL ONE (07:16)
[2020-05-17] MEDS ORDERED: DEXAMETHASONE SOD PHOSPHATE/PF 10 MG/ML SDV ONE (07:16)
[2020-05-17] MEDS ORDERED: BUPIVACAINE HCL/PF 0.75% 10 ML VIAL ONE (07:16)
[2020-05-17] MEDS ORDERED: SODIUM CHLORIDE 0.9% P/F 10 ML VIAL IJ ONE (07:28)
[2020-05-17] MEDS ORDERED: LIDOCAINE HCL 1% PRESERVATIVE FREE - 30ML VIAL IJ ONE (08:42)
[2020-05-17] MEDS ORDERED: TRIAMCINOLONE ACET 40MG/1ML VIAL IM ONE (08:42)
[2020-05-17] MEDS ORDERED: IOHEXOL 180 MG/1 ML ML IJ ONE (08:42)
[2020-05-17] MEDS ORDERED: BUPIVACAINE HCL/PF 0.5% (5 MG/ML) 30 ML VIAL IJ ONE (08:42)
[2020-05-17 09:13] VITALS: BP 110/54; PULSE 55; TEMP 98
== END 2020-05-17 09:45 | disposition home or self-care (01) ==
LOC: JASU-SURG 04:15
PROVIDERS: ATTEND Pain Medicine Pain Medicine
PROC: 3E0T33Z Introduction of Anti-inflammatory into Peripheral Nerves and Plexi, Percutaneous Approach (ICD-10-PCS; 2020-05-17)
PROC: 3E0T3BZ Introduction of Anesthetic Agent into Peripheral Nerves and Plexi, Percutaneous Approach (ICD-10-PCS; principal; 2020-05-17 08:30)
DX: M53.3 Sacrococcygeal disorders, not elsewhere classified (principal)
CPT/HCPCS: 76000-TC-FY

== ENCOUNTER 2021-02-07 11:22 | Day surgery (SDC) | payer OTHER ==
[2021-02-06 14:46] VITALS: BMI 35.7
[2021-02-07] MEDS ORDERED: TRIAMCINOLONE ACETONIDE 40 MG/ML 10 ML VIAL IJ ONE (13:39)
[2021-02-07] MEDS ORDERED: BUPIVACAINE HCL/PF 0.5% (5MG/ML) 10 ML VIAL IJ ONE (13:40)
[2021-02-07] MEDS ORDERED: LIDOCAINE 1% P/F 10 MG/ML VIAL INF ONE ×2 (13:40→14:06)
[2021-02-07] MEDS ORDERED: BUPIVACAINE HCL/PF 0.75% 10 ML VIAL NR ONE (13:40)
[2021-02-07] MEDS ORDERED: BUPIVACAINE HCL/PF 0.75% 10 ML VIAL ONE (13:41)
[2021-02-07] MEDS ORDERED: LIDOCAINE HCL/PF 1% SDV 5ML VIAL ONE (13:41)
[2021-02-07] MEDS ORDERED: IOHEXOL 180 MG/1 ML ML IJ ONE (14:06)
[2021-02-07 15:25] VITALS: BP 119/62; PULSE 73; TEMP 97.8
== END 2021-02-07 14:55 | disposition home or self-care (01) ==
LOC: JASU-SURG 11:22
PROVIDERS: ATTEND Pain Medicine Pain Medicine
PROC: 3E0U3BZ Introduction of Anesthetic Agent into Joints, Percutaneous Approach (ICD-10-PCS; 2021-02-07)
PROC: 3E0U33Z Introduction of Anti-inflammatory into Joints, Percutaneous Approach (ICD-10-PCS; principal; 2021-02-07 13:00)
DX: M53.3 Sacrococcygeal disorders, not elsewhere classified (principal)
CPT/HCPCS: 76000-TC-FY

== ENCOUNTER 2021-06-02 22:34 | Emergency (ER) | payer OTHER ==
[2021-06-02 22:42] VITALS: BP 121/74; PULSE 59; TEMP 98.1; BMI 34.8
[2021-06-02] MEDS ORDERED: IBUPROFEN 600 MG TABLET (FP) PO ONE ×2 (23:31→23:47)
== END 2021-06-03 00:28 | disposition home or self-care (01) ==
LOC: JER 22:34
DX: S63.619A Unspecified sprain of unspecified finger, initial encounter (principal); S63.602A Unspecified sprain of left thumb, initial encounter; V78.6XXA Passenger on bus injured in noncollision transport accident in traffic accident, initial encounter
CPT/HCPCS: 73130-TC-LT-FY; 99283-25

== ENCOUNTER 2021-06-27 04:22 | Day surgery (SDC) | payer OTHER ==
[2021-06-26 12:31] VITALS: BMI 36.2
[2021-06-27] MEDS ORDERED: BUPIVACAINE HCL/PF 0.75% 10 ML VIAL ONE (07:10)
[2021-06-27] MEDS ORDERED: LIDOCAINE HCL/PF 1% SDV 5ML VIAL ONE (07:10)
[2021-06-27] MEDS ORDERED: BUPIVACAINE HCL/PF 0.75% 10 ML VIAL NR ONE ×2 (10:32→10:38)
[2021-06-27] MEDS ORDERED: IOHEXOL 180 MG/1 ML ML IJ ONE ×2 (10:32→10:35)
[2021-06-27] MEDS ORDERED: LIDOCAINE HCL 1% PRESERVATIVE FREE - 30ML VIAL IJ ONE (10:32)
[2021-06-27 11:43] VITALS: BP 114/68; PULSE 55; TEMP 98.8
== END 2021-06-27 11:20 | disposition home or self-care (01) ==
LOC: JASU-SURG 04:22
PROVIDERS: ATTEND Pain Medicine Pain Medicine
PROC: BR16YZZ Fluoroscopy of Lumbar Facet Joint(s) using Other Contrast (ICD-10-PCS; 2021-06-27)
PROC: 3E0T3BZ Introduction of Anesthetic Agent into Peripheral Nerves and Plexi, Percutaneous Approach (ICD-10-PCS; principal; 2021-06-27 10:30)
DX: M47.816 Spondylosis without myelopathy or radiculopathy, lumbar region (principal)
CPT/HCPCS: 76000-TC-FY

== ENCOUNTER 2021-07-29 04:41 | Day surgery (SDC) | payer OTHER ==
[2021-07-25 16:05] VITALS: BMI 35.4
[~2021-07-29 04:41] MED LIST: BUPIVACAINE HCL/PF 0.75% 10 ML VIAL NR ONE
[2021-07-29] MEDS ORDERED: BUPIVACAINE HCL/PF 0.75% 10 ML VIAL ONE (07:44)
[2021-07-29] MEDS ORDERED: LIDOCAINE HCL/PF 1% SDV 5ML VIAL ONE (07:44)
[2021-07-29] MEDS ORDERED: LIDOCAINE HCL 1% PRESERVATIVE FREE - 30ML VIAL IJ ONE ×2 (12:24)
[2021-07-29] MEDS ORDERED: IOHEXOL 180 MG/1 ML ML IJ ONE (12:25)
[2021-07-29] MEDS ORDERED: BUPIVACAINE HCL/PF 0.75% 10 ML VIAL NR ONE (12:32)
[2021-07-29 14:00] VITALS: BP 106/55; PULSE 60; TEMP 97.8
== END 2021-07-29 13:45 | disposition home or self-care (01) ==
LOC: JASU-SURG 04:41
PROVIDERS: ATTEND Pain Medicine Pain Medicine
PROC: BR16YZZ Fluoroscopy of Lumbar Facet Joint(s) using Other Contrast (ICD-10-PCS; 2021-07-29)
PROC: 3E0T3BZ Introduction of Anesthetic Agent into Peripheral Nerves and Plexi, Percutaneous Approach (ICD-10-PCS; principal; 2021-07-29 11:30)
DX: M47.816 Spondylosis without myelopathy or radiculopathy, lumbar region (principal)
CPT/HCPCS: 76000-TC-FY

== ENCOUNTER → 2022-12-01 | Day surgery (SDC) | payer OTHER ==
[2022-11-27 14:16] VITALS: BMI 36.0
[~2022-12-01] MED LIST changes: +ACETAMINOPHEN 500 MG TABLET (FP) PO PRN; +LIDOCAINE 1% P/F 10 MG/ML VIAL INF ONE
[2022-12-01 12:51] VITALS: RESP 18
[2022-12-01 14:07] VITALS: TEMP 97.8
[2022-12-01 14:27] VITALS: BP 119/71; PULSE 69
== END | disposition home or self-care (01) ==
LOC: JASU-SURG 05:00
PROVIDERS: ATTEND Pain Medicine Pain Medicine
PROC: 3E0T33Z Introduction of Anti-inflammatory into Peripheral Nerves and Plexi, Percutaneous Approach (ICD-10-PCS; 2022-12-01)
PROC: 3E0T3BZ Introduction of Anesthetic Agent into Peripheral Nerves and Plexi, Percutaneous Approach (ICD-10-PCS; principal; 2022-12-01 14:30)
DX: M47.816 Spondylosis without myelopathy or radiculopathy, lumbar region (principal)
CPT/HCPCS: 76000-TC-FY

== ENCOUNTER 2023-02-05 08:30 | Emergency (ER) | payer OTHER ==
[2023-02-05 08:35] VITALS: BMI 36.8
[2023-02-05] MEDS ORDERED: MAG HYDROX/AL HYDROX/SIMETH 30 ML UNIT-DOSE CUP PO ONE (09:44)
[2023-02-05] MEDS ORDERED: ACETAMINOPHEN 1000 MG/100 ML BAG IVPB ONE (09:44)
[2023-02-05] MEDS ORDERED: ONDANSETRON 4 MG/2 ML VIAL IVPUSH ONE (09:44)
[2023-02-05] MEDS ORDERED: FAMOTIDINE 20 MG/50 ML IVPB 20 MG/50 ML MG IVPB ONE ×3 (09:44→10:29)
[2023-02-05] MEDS ORDERED: ACETAMINOPHEN INJECTION 100 ML IVPB ONE (10:26)
[2023-02-05] MEDS ORDERED: MAG HYDROX/AL HYDROX/SIMETH 30 ML UNIT-DOSE CUP ONE ×2 (10:26→10:56)
[2023-02-05] MEDS ORDERED: ONDANSETRON 4 MG/2 ML VIAL ONE (10:26)
[2023-02-05 11:14] LABS: BASO % 0.3 % (0-2.0); EOS % 0.2 % (0-4.5); HEMOGLOBIN 11.9 GM/dL (10.7-15.3); LYMPH % 8.3 % (8-40); MCH 29.6 pg (25.7-33.7); MCHC 32.3 g/dl (32.0-36.0); MEAN CELL VOLUME 91.8 fl (80-96); MONO % 2.6 % (3.8-10.2); NEUT % 88.6 % (42.8-82.8); PLATELET COUNT 241 10^3/uL (134-434); RBC 4.03 M/mm3 (3.60-5.2); RDW 13.2 % (11.6-15.6); WHITE BLOOD COUNT 13.3 K/mm3 (4.0-10.0)
[2023-02-05 11:18] LABS: INR 1.09 (0.83-1.09); PROTHROMBIN TIME (PATIENT) 12.6 SEC (9.7-13.0)
[2023-02-05 11:21] LABS: ACTIVATED PTT 32.7 SECONDS (25.2-36.5)
[2023-02-05 11:34] LABS: POTASSIUM 4.1 mmol/L (3.5-5.1)
[2023-02-05 11:37] LABS: CALCIUM 9.6 mg/dL (8.5-10.1)
[2023-02-05 11:38] LABS: ALBUMIN 4.1 g/dl (3.4-5.0)
[2023-02-05 11:41] LABS: CREATININE 0.6 mg/dL (0.55-1.3)
[2023-02-05 11:42] LABS: TOT PROT 7.5 g/dl (6.4-8.2)
[2023-02-05 11:43] LABS: BILIRUBIN,TOTAL 0.5 mg/dL (0.2-1)
[2023-02-05 12:04] LABS: EPI CELLS 8 /uL (0-25.1); HYALINE CASTS 0 /uL (0-3.1); URINE APPEARANCE CLEAR; URINE BACTERIA 82 /uL (0-1359); URINE BILIRUBIN NEGATIVE (NEGATIVE); URINE COLOR YELLOW; URINE GLUCOSE (UA) NEGATIVE (NEGATIVE); URINE KETONE 2+ (NEGATIVE); URINE LEUK ESTERASE NEGATIVE (NEGATIVE); URINE NITRITE NEGATIVE (NEGATIVE); URINE PROTEIN NEGATIVE (NEGATIVE); URINE RBC 79 /uL (0-23.9); URINE WBC 5 /uL (0-25.8)
[2023-02-05 15:33] VITALS: BP 95/45; PULSE 62; RESP 18; TEMP 97.7
== END 2023-02-05 15:42 | disposition home or self-care (01) ==
LOC: JER 08:30
PROC: 3E033GC Introduction of Other Therapeutic Substance into Peripheral Vein, Percutaneous Approach (ICD-10-PCS; principal; 2023-02-05)
PROC: 3E033NZ Introduction of Analgesics, Hypnotics, Sedatives into Peripheral Vein, Percutaneous Approach (ICD-10-PCS; 2023-02-05)
PROC: 3E033GC Introduction of Other Therapeutic Substance into Peripheral Vein, Percutaneous Approach (ICD-10-PCS; 2023-02-05)
DX: R11.10 Vomiting, unspecified (principal); R10.31 Right lower quadrant pain
CPT/HCPCS: 36415; 71045-TC-FY; 74177-TC; 80053; 81003; 83690; 84484; 85025; 85610; 85730; 87040; 87086; 93005; 93010; 99285-25; Q9967

== ENCOUNTER 2023-03-26 04:31 | Day surgery (SDC) | payer OTHER ==
[2023-03-24 16:32] VITALS: BMI 36.0
[2023-03-26] MEDS ORDERED: BUPIVACAINE HCL/PF 0.75% 10 ML VIAL ONE (07:42)
[2023-03-26] MEDS ORDERED: LIDOCAINE HCL/PF 1% SDV 5ML VIAL ONE (07:42)
[2023-03-26] MEDS ORDERED: ACETAMINOPHEN 500 MG TABLET (FP) PO PRN (09:49)
[2023-03-26] MEDS ORDERED: BUPIVACAINE HCL/PF 0.75% 10 ML VIAL CAUD ONE (12:43)
[2023-03-26] MEDS ORDERED: LIDOCAINE 1% P/F 10 MG/ML VIAL INF ONE (12:44)
[2023-03-26] MEDS ORDERED: BUPIVACAINE HCL/PF 0.5% (5MG/ML) 10 ML VIAL IJ ONE (12:47)
[2023-03-26 13:21] VITALS: BP 115/68; PULSE 50; RESP 20; TEMP 97
== END 2023-03-26 14:00 | disposition home or self-care (01) ==
LOC: JASU-SURG 04:31
PROVIDERS: ATTEND Pain Medicine Pain Medicine
PROC: 3E0T33Z Introduction of Anti-inflammatory into Peripheral Nerves and Plexi, Percutaneous Approach (ICD-10-PCS; 2023-03-26)
PROC: 3E0T3BZ Introduction of Anesthetic Agent into Peripheral Nerves and Plexi, Percutaneous Approach (ICD-10-PCS; principal; 2023-03-26 13:45)
DX: M47.816 Spondylosis without myelopathy or radiculopathy, lumbar region (principal)
CPT/HCPCS: 76000-TC-FY

== ENCOUNTER → 2023-08-31 | Day surgery (SDC) | payer OTHER | END | disposition home or self-care (01) | LOC: JRADIR 09:25 | PROVIDERS: ATTEND Family Medicine | PROC: 0G9H3ZX Drainage of Right Thyroid Gland Lobe, Percutaneous Approach, Diagnostic (ICD-10-PCS; principal; 2023-08-31) | DX: E04.1 Nontoxic single thyroid nodule (principal) | CPT/HCPCS: 10005; 76942; 88173; 88305-TC ==